=== PATIENT | female | born 1960 | race Two or more races ===

== ENCOUNTER 2021-05-23 10:12 | Outpatient (CLI) | payer OTHER | END 2021-05-23 10:27 | disposition home or self-care (01) | LOC: LAB 10:12 | PROVIDERS: ATTEND Orthopaedic Surgery | DX: D64.89 Other specified anemias (principal); E11.8 Type 2 diabetes mellitus with unspecified complications; I48.91 Unspecified atrial fibrillation; N39.0 Urinary tract infection, site not specified; E03.8 Other specified hypothyroidism; M35.1 Other overlap syndromes; E11.9 Type 2 diabetes mellitus without complications; E55.9 Vitamin D deficiency, unspecified; Z12.11 Encounter for screening for malignant neoplasm of colon; E78.2 Mixed hyperlipidemia; M85.88 Other specified disorders of bone density and structure, other site; E56.1 Deficiency of vitamin K; E21.2 Other hyperparathyroidism; E88.89 Other specified metabolic disorders; M81.8 Other osteoporosis without current pathological fracture ==

== ENCOUNTER 2021-05-23 12:03 | Outpatient (CLI) | payer OTHER | END 2021-05-23 12:12 | disposition home or self-care (01) | LOC: RAD 12:03 | PROVIDERS: ATTEND Orthopaedic Surgery | DX: R07.89 Other chest pain (principal); Z76.89 Persons encountering health services in other specified circumstances ==

== ENCOUNTER 2021-05-24 07:47 | Outpatient (CLI) | payer OTHER | END 2021-05-24 07:48 | disposition home or self-care (01) | LOC: LAB 07:47 | PROVIDERS: ATTEND Internal Medicine | DX: D64.89 Other specified anemias (principal); E11.8 Type 2 diabetes mellitus with unspecified complications; I48.91 Unspecified atrial fibrillation; N39.0 Urinary tract infection, site not specified; E03.8 Other specified hypothyroidism; M35.1 Other overlap syndromes; E11.9 Type 2 diabetes mellitus without complications; E55.9 Vitamin D deficiency, unspecified; Z12.11 Encounter for screening for malignant neoplasm of colon; E78.2 Mixed hyperlipidemia ==

== ENCOUNTER 2021-05-24 08:12 | Outpatient (CLI) | payer OTHER | END 2021-05-24 08:24 | disposition home or self-care (01) | LOC: TOM 08:12 | PROVIDERS: ATTEND Internal Medicine | DX: R10.84 Generalized abdominal pain (principal); R10.9 Unspecified abdominal pain; K46.9 Unspecified abdominal hernia without obstruction or gangrene ==

== ENCOUNTER 2021-06-24 11:04 | Outpatient (CLI) | payer OTHER | END 2021-06-24 11:16 | disposition home or self-care (01) | LOC: RAD 11:04 | PROVIDERS: ATTEND Orthopaedic Surgery | DX: M54.6 Pain in thoracic spine (principal) ==

== ENCOUNTER 2021-07-14 09:01 | Outpatient (CLI) | payer OTHER | END 2021-07-14 09:09 | disposition home or self-care (01) | LOC: SONOGRAMA 09:01 | PROVIDERS: ATTEND Internal Medicine | DX: N93.9 Abnormal uterine and vaginal bleeding, unspecified (principal); R19.01 Right upper quadrant abdominal swelling, mass and lump ==

== ENCOUNTER 2021-07-26 08:17 | Outpatient (CLI) | payer OTHER | END 2021-07-26 08:18 | disposition home or self-care (01) | LOC: LAB 08:17 | PROVIDERS: ATTEND Radiology Diagnostic Radiology | DX: R10.9 Unspecified abdominal pain (principal) ==

== ENCOUNTER 2021-07-26 08:54 | Outpatient (CLI) | payer OTHER | END 2021-07-26 10:31 | disposition home or self-care (01) | LOC: TOM 08:54 | PROVIDERS: ATTEND Surgery | DX: R10.9 Unspecified abdominal pain (principal) ==

== ENCOUNTER 2021-11-29 10:08 | Outpatient (CLI) | payer OTHER | END 2021-11-29 10:09 | disposition home or self-care (01) | LOC: LAB 10:08 | DX: E08.9 Diabetes mellitus due to underlying condition without complications (principal); E03.9 Hypothyroidism, unspecified; N95.1 Menopausal and female climacteric states; N85.3 Subinvolution of uterus ==

== ENCOUNTER → 2022-07-24 09:59 | Outpatient (CLI) | payer OTHER | END | disposition home or self-care (01) | LOC: LAB 09:59 | PROVIDERS: ATTEND Orthopaedic Surgery | DX: E55.9 Vitamin D deficiency, unspecified (principal); M85.9 Disorder of bone density and structure, unspecified; E56.1 Deficiency of vitamin K; E21.3 Hyperparathyroidism, unspecified; M81.8 Other osteoporosis without current pathological fracture; E88.9 Metabolic disorder, unspecified ==

== ENCOUNTER 2022-07-27 14:14 | Outpatient (CLI) | payer OTHER | END 2022-07-27 14:16 | disposition home or self-care (01) | LOC: NUCLEAR 14:14 | PROVIDERS: ATTEND Orthopaedic Surgery | DX: M81.0 Age-related osteoporosis without current pathological fracture (principal) ==

== ENCOUNTER 2023-08-07 10:42 | Outpatient (CLI) | payer OTHER ==
[2023-08-07 13:38] LABS: ALBUMIN 3.7 gm/dL (3.4-5.0); BILIRUBIN TOTAL 0.41 mg/dL (0.3-1.2); CALCIUM 9.4 mg/dL (8.5-10.1); CREATININE SERUM 0.66 mg/dL (0.55-1.02); GFR 90.75; GLOBULINA 4.1 G/DL (2.4-3.5); MAGNESIUM 2.5 mg/dL (1.8-2.4); PHOSPHOROUS 3.1 mg/dL (2.5-4.9); POTASSIUM 4.69 mEq/L (3.5-5.1); TOTAL PROTEIN 7.8 gm/dL (6.4-8.2)
[2023-08-09 13:07] LABS: CALCIUM IONIZED 4.9 mg/dL (4.5-5.6)
== END 2023-08-07 10:44 | disposition home or self-care (01) ==
LOC: LAB 10:42
PROVIDERS: ATTEND Orthopaedic Surgery
DX: E55.9 Vitamin D deficiency, unspecified (principal); M85.9 Disorder of bone density and structure, unspecified; E56.1 Deficiency of vitamin K; E21.3 Hyperparathyroidism, unspecified; E88.89 Other specified metabolic disorders; M81.8 Other osteoporosis without current pathological fracture

== ENCOUNTER 2023-08-09 12:35 | Outpatient (CLI) | payer OTHER | END 2023-08-09 12:37 | disposition home or self-care (01) | LOC: NUCLEAR 12:35 | PROVIDERS: ATTEND Orthopaedic Surgery | DX: M81.0 Age-related osteoporosis without current pathological fracture (principal) ==

== ENCOUNTER 2023-08-23 13:26 | Outpatient (CLI) | payer OTHER | END 2023-08-23 13:32 | disposition home or self-care (01) | LOC: TOM 13:26 | PROVIDERS: ATTEND Orthopaedic Surgery | DX: R07.89 Other chest pain (principal); Z76.89 Persons encountering health services in other specified circumstances ==

== ENCOUNTER 2023-11-14 09:45 | Outpatient (CLI) | payer OTHER ==
[2023-11-14 11:03] LABS: ALBUMIN 3.6 gm/dL (3.4-5.0); BILIRUBIN TOTAL 0.63 mg/dL (0.3-1.2); CALCIUM 9.1 mg/dL (8.5-10.1); CREATININE SERUM 0.65 mg/dL (0.55-1.02); GFR 92.36; GLOBULINA 3.9 G/DL (2.4-3.5); POTASSIUM 4.91 mEq/L (3.5-5.1); TOTAL PROTEIN 7.5 gm/dL (6.4-8.2)
== END 2023-11-14 09:49 | disposition home or self-care (01) ==
LOC: LAB 09:45
PROVIDERS: ATTEND Obstetrics & Gynecology Obstetrics
DX: N95.0 Postmenopausal bleeding (principal); E10.10 Type 1 diabetes mellitus with ketoacidosis without coma; E71.2 Disorder of branched-chain amino-acid metabolism, unspecified

== ENCOUNTER 2023-11-14 10:11 | Outpatient (CLI) | payer OTHER | END 2023-11-14 10:21 | disposition home or self-care (01) | LOC: TOM 10:11 | PROVIDERS: ATTEND Obstetrics & Gynecology Obstetrics | DX: R10.2 Pelvic and perineal pain (principal); K45.0 Other specified abdominal hernia with obstruction, without gangrene ==

== ENCOUNTER 2023-12-13 10:16 | Outpatient (CLI) | payer OTHER ==
[2023-12-13 10:58] LABS: HEMATOCRIT 36.3 % (36.0-45.00); HEMOGLOBIN 12.3 g/dL (12.0-15.00); MEAN CELL VOLUME 93.1 fL (80.00-100.00); MEAN CORPUSCULAR HEMOGLOBIN 31.6 pg (27.00-32.0); PLATELET COUNT 269 K/uL (150-450); RED CELL DISTRIBUTION WIDTH 14.6 % (11.5-14.5)
[2023-12-13 11:04] LABS: PH,URINE 7.5 (5.0-8.0); URINE APPEARANCE Clear; URINE BILIRRUBIN Negative (NEGATIVE); URINE BLOOD Negative; URINE COLOR Yellow; URINE GLUCOSE Negative (NEGATIVE); URINE KETONE Negative (NEGATIVE); URINE LEUKOCYTE Negative; URINE NITRATE Negative; URINE PROTEIN Negative (NEGATIVE); URINE UROBILINOGEN 0.2 E.U./dl
[2023-12-13 11:05] LABS: URINE BACTERIA 7.5 uL (0.0-1933); URINE EPITHELIAL CELLS 3.7 uL (0.0-38.8); URINE RBC 6.5 uL (0.0-20.8); URINE WBC 2.6 uL (0.0-23.2)
[2023-12-13 11:07] LABS: URINE CAST 0.15 uL (0.0-1.40)
[2023-12-13 11:50] LABS: ALBUMIN 3.7 gm/dL (3.4-5.0); BILIRUBIN TOTAL 0.63 mg/dL (0.3-1.2); CALCIUM 8.9 mg/dL (8.5-10.1); CHOL HDL RATIO 3.3 (0-5.0); CREATININE SERUM 0.73 mg/dL (0.55-1.02); GFR 80.52; GLOBULINA 3.8 G/DL (2.4-3.5); T4 FREE 0.97 NG/ML (0.76-1.46); TOTAL PROTEIN 7.5 gm/dL (6.4-8.2); TSH 0.591 uIU/mL (0.358-3.74)
[2023-12-13 11:52] LABS: INR 0.95
[2023-12-13 11:55] LABS: POTASSIUM 4.58 mEq/L (3.5-5.1)
== END 2023-12-13 10:26 | disposition home or self-care (01) ==
LOC: LAB 10:16
PROVIDERS: ATTEND Obstetrics & Gynecology Obstetrics
DX: D64.9 Anemia, unspecified (principal); N39.0 Urinary tract infection, site not specified; E03.8 Other specified hypothyroidism; E55.9 Vitamin D deficiency, unspecified; E78.00 Pure hypercholesterolemia, unspecified; E10.11 Type 1 diabetes mellitus with ketoacidosis with coma; E11.9 Type 2 diabetes mellitus without complications; Z01.812 Encounter for preprocedural laboratory examination; E10.9 Type 1 diabetes mellitus without complications; R19.02 Left upper quadrant abdominal swelling, mass and lump; N80.00 Endometriosis of the uterus, unspecified; N92.1 Excessive and frequent menstruation with irregular cycle; R97.8 Other abnormal tumor markers; R10.2 Pelvic and perineal pain; R53.1 Weakness; D25.9 Leiomyoma of uterus, unspecified; K59.00 Constipation, unspecified; N80.30 Endometriosis of pelvic peritoneum, unspecified; Z12.11 Encounter for screening for malignant neoplasm of colon; Z11.2 Encounter for screening for other bacterial diseases; R79.1 Abnormal coagulation profile; D68.9 Coagulation defect, unspecified

== ENCOUNTER 2024-02-21 13:58 | Outpatient (CLI) | payer OTHER | END 2024-02-21 14:10 | disposition home or self-care (01) | LOC: RAD 13:58 | PROVIDERS: ATTEND Orthopaedic Surgery | DX: M54.50 Low back pain, unspecified (principal) ==

== ENCOUNTER 2024-02-22 14:57 | Outpatient (CLI) | payer OTHER | END 2024-02-22 15:08 | disposition home or self-care (01) | LOC: RAD 14:57 | PROVIDERS: ATTEND Orthopaedic Surgery | DX: M25.551 Pain in right hip (principal); M25.552 Pain in left hip ==

== ENCOUNTER → 2024-03-26 12:21 | Outpatient (CLI) | payer OTHER ==
[2024-03-26 13:12] LABS: HEMATOCRIT 38.4 % (36.0-45.00); HEMOGLOBIN 12.8 g/dL (12.0-15.00); MEAN CELL VOLUME 95.1 fL (80.00-100.00); MEAN CORPUSCULAR HEMOGLOBIN 31.6 pg (27.00-32.0); MEAN CORPUSCULAR HGB CONC 33.3 g/dl (32.0-36.0); PLATELET COUNT 323 K/uL (150-450); RED BLOOD COUNT 4.04 M/uL (4.00-6.00); RED CELL DISTRIBUTION WIDTH 14.5 % (11.5-14.5)
[2024-03-26 13:27] LABS: INR 0.96; PARTIAL THROMBOPLASTIN TIME 26.7 SECONDS (22.0-34.0); PROTHROMBIN TIME 10.5 SECONDS (9.0-11.5)
== END | disposition home or self-care (01) ==
LOC: LAB 12:21
DX: D64.89 Other specified anemias (principal); D68.8 Other specified coagulation defects; R79.1 Abnormal coagulation profile

== ENCOUNTER 2024-08-14 08:45 | Outpatient (CLI) | payer OTHER ==
[2024-08-14 10:23] LABS: ALBUMIN 3.6 gm/dL (3.4-5.0); BILIRUBIN TOTAL 0.66 mg/dL (0.3-1.2); CALCIUM 8.8 mg/dL (8.5-10.1); CREATININE SERUM 0.71 mg/dL (0.55-1.02); GFR 83.14; GLOBULINA 3.9 G/DL (2.4-3.5); MAGNESIUM 2.4 mg/dL (1.8-2.4); PHOSPHOROUS 2.9 mg/dL (2.5-4.9); TOTAL PROTEIN 7.5 gm/dL (6.4-8.2)
[2024-08-15 13:11] LABS: CALCIUM IONIZED 4.8 mg/dL (4.5-5.6)
== END 2024-08-14 09:03 | disposition home or self-care (01) ==
LOC: LAB 08:45
DX: E55.9 Vitamin D deficiency, unspecified (principal); M85.9 Disorder of bone density and structure, unspecified; E56.1 Deficiency of vitamin K; E21.3 Hyperparathyroidism, unspecified; E88.89 Other specified metabolic disorders; M81.8 Other osteoporosis without current pathological fracture

== ENCOUNTER 2024-08-28 10:26 | Outpatient (CLI) | payer OTHER | END 2024-08-28 10:27 | disposition home or self-care (01) | LOC: NUCLEAR 10:26 | PROVIDERS: ATTEND Orthopaedic Surgery | DX: M81.0 Age-related osteoporosis without current pathological fracture (principal) ==

== ENCOUNTER → 2025-01-23 09:32 | Outpatient (CLI) | payer OTHER ==
[2025-01-23 10:51] LABS: BASO % 0.8 % (0.1-1.2); EOS # 0.12 (0.04-0.54); EOS % 1.7 % (0.7-7.0); LYMPH # 1.65 (1.18-3.74); LYMPH % 22.9 % (19.3-53.1); MEAN PLATELET VOLUME 10.50 fl (9.4-12.4); MONO # 0.42 (0.24-0.82); MONO % 5.8 % (4.7-12.5); NEUT # 4.95 (1.56-6.13); NEUT % 68.5 % (34.0-71.1); RED CELL DISTRIBUTION WIDTH 13.9 % (11.6-14.4)
[2025-01-23 11:25] LABS: URINE APPEARANCE Clear; URINE BILIRRUBIN Negative (NEGATIVE); URINE BLOOD Negative; URINE COLOR Yellow; URINE GLUCOSE Negative (NEGATIVE); URINE KETONE Trace (NEGATIVE); URINE LEUKOCYTE Trace; URINE NITRATE Negative; URINE PROTEIN Negative (NEGATIVE); URINE UROBILINOGEN 1.0 E.U./dl
[2025-01-23 11:30] LABS: URINE BACTERIA 26.3 uL (0.0-1933); URINE EPITHELIAL CELLS 11.2 uL (0.0-38.8); URINE RBC 7.1 uL (0.0-20.8); URINE WBC 4.4 uL (0.0-23.2)
[2025-01-23 11:51] LABS: ALT/SGPT 25.0 U/L (12-78); AST/SGOT 14.0 U/L (15-37); BILIRUBIN TOTAL 0.72 mg/dL (0.3-1.2); BILIRUBIN,CONJUGATED 0.2 mg/dL (0.0-0.2); BUN CREA RATIO 25.0 (7.0-25.0); CHOL HDL RATIO 3.3 (0-5.0); CREATININE SERUM 0.65 mg/dL (0.55-1.02); GFR 91.76; GLOBULINA 3.9 G/DL (2.4-3.5); GLUCOSE FASTING 86.0 mg/dL (65-100); HDL 45.0 mg/dl (40-60); LDL 89.0 mg/dl (0-130); OSMOLALITY SERUM 287.0 MOSM/KG (275-295); T4 FREE 0.92 NG/ML (0.76-1.46); TSH 0.769 uIU/mL (0.358-3.74); VLDL 13.0 (0-39)
[2025-01-23 12:07] LABS: URINE CAST 0.14 uL (0.0-1.40)
[2025-01-23 12:10] LABS: INR 0.96
[2025-01-24 07:10] LABS: hav igm Negative (Negative); hep b c Negative (Negative); hep b s ag Negative (Negative)
[2025-01-24 09:08] LABS: ALPHA FETO PROTEIN 4.4 ng/mL (0.0-9.2)
== END | disposition home or self-care (01) ==
LOC: LAB 09:32
PROVIDERS: ATTEND Internal Medicine
DX: D64.9 Anemia, unspecified (principal); E11.8 Type 2 diabetes mellitus with unspecified complications; I48.91 Unspecified atrial fibrillation; N39.0 Urinary tract infection, site not specified; E03.9 Hypothyroidism, unspecified; M35.1 Other overlap syndromes; E11.9 Type 2 diabetes mellitus without complications; E55.9 Vitamin D deficiency, unspecified; Z12.11 Encounter for screening for malignant neoplasm of colon; E78.2 Mixed hyperlipidemia; K75.9 Inflammatory liver disease, unspecified; K76.9 Liver disease, unspecified; K75.81 Nonalcoholic steatohepatitis (NASH)

== ENCOUNTER 2025-01-23 10:54 | Outpatient (CLI) | payer OTHER | END 2025-01-23 10:56 | disposition home or self-care (01) | LOC: TOM 10:54 | PROVIDERS: ATTEND Internal Medicine | DX: K75.81 Nonalcoholic steatohepatitis (NASH) (principal); K74.01 Hepatic fibrosis, early fibrosis; R10.817 Generalized abdominal tenderness; K43.7 Other and unspecified ventral hernia with gangrene; P38.9 Omphalitis without hemorrhage; R30.1 Vesical tenesmus ==

== ENCOUNTER 2025-01-24 11:09 | Outpatient (CLI) | payer OTHER ==
[2025-01-24 11:56] LABS: ob NEGATIVE (NEGATIVE)
== END 2025-01-24 11:19 | disposition home or self-care (01) ==
LOC: LAB 11:09
PROVIDERS: ATTEND Internal Medicine
DX: D64.9 Anemia, unspecified (principal); E11.9 Type 2 diabetes mellitus without complications; I48.91 Unspecified atrial fibrillation; N39.0 Urinary tract infection, site not specified; E03.9 Hypothyroidism, unspecified; M35.1 Other overlap syndromes; E55.9 Vitamin D deficiency, unspecified; Z12.11 Encounter for screening for malignant neoplasm of colon; E78.2 Mixed hyperlipidemia; K75.9 Inflammatory liver disease, unspecified; K76.9 Liver disease, unspecified; K75.81 Nonalcoholic steatohepatitis (NASH)